=== PATIENT | male | born 1995 | race Caucasian/White ===

== ENCOUNTER 2020-12-21 16:21 | Emergency (ER) | payer OTHER, BC ==
[2020-12-21 16:31] VITALS: BP 170/91; PULSE 84
[2020-12-21] MEDS: Ondansetron 4 MG Tab.DIS PO ONE ×2 (17:07→17:08)
[2020-12-21] MEDS: Bacitracin/Neomycin/Polymyxin B Oint 28.4 GM Tube TOP ONE (17:17)
[2020-12-21] MEDS: Bacitracin/Neomycin/Polymyxin B Oint 0.9 GM U/D Packet TOP ONE (17:19)
--- NOTE | 2020-12-21 17:28 | EDM.PDOC ---
ED HPI GENERAL MEDICAL PROBLEM - General Chief Complaint: Upper Extremity Injury/Pain Stated Complaint: HURT MIDDLE FINGER - LT HAND Time Seen by Provider: 12/21/20 16:40 Source of Information: Reports: Patient History Limitations: Reports: No Limitations - History of Present Illness INITIAL COMMENTS - FREE TEXT/NARRATIVE: Carrington is a 25 year old male who presents with an injury to his left 3rd digit. Relates he got his finger pinched between the rim and tire on a tractor at work. Noted laceration and increased pain to his finger tip. Has good range of motion of his fingers. Up to date on his tetanus. 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) Left Hand Pain Score (Numeric/FACES): 5 - Related Data Allergies Allergy/AdvReac Type Severity Reaction Status Date / Time codeine Allergy Cannot Verified 12/21/20 16:25 Remember Home Meds: Home Meds lisinopriL [Lisinopril] 10 mg PO DAILY 12/21/20 [History] Past Medical History - Past Health History Medical/Surgical History: Denies Medical/Surgical History Cardiovascular History: Reports: Hypertension - Infectious Disease History Infectious Disease History: Reports: None - Past Surgical History HEENT Surgical History: Reports: Other (See Below) Other HEENT Surgeries/Procedures: cleft lip repair Social & Family History - Family History Family Medical History: No Pertinent Family History - Tobacco Use Tobacco Use Status *Q: Former Tobacco User Used Tobacco, but Quit: Yes Month/Year Tobacco Last Used: 0 - Caffeine Use Caffeine Use: Reports: Soda - Recreational Drug Use Recreational Drug Use: No Review of Systems - Review of Systems Review Of Systems: Comprehensive ROS is negative, except as noted in HPI. ED EXAM, GENERAL - Physical Exam Exam: See Below Exam Limited By: No Limitations General Appearance: Alert, WD/WN, No Apparent Distress Extremities: Normal Range of Motion, Normal Capillary Refill Neurological: Alert, Oriented Skin Exam: Wound/Incision ED TRAUMA EXTREMITY PROCEDURES - Laceration/Wound Repair Left Digit - 3rd (Middle) Lac/Wound Length In cm: 2.5 Appearance: Subcutaneous, Linear Distal NVT: Neuro & Vascular Intact Anesthetic Type: Local Local Anesthesia - Lidocaine (Xylocaine): 1% Plain Local Anesthetic Volume: 3cc Exploration/Debridement/Repair: Wound Explored, Explored to Base Closed With: Sutures Suture Size: 4-0 # of Sutures: 3 (3 sutures applied to medial mid finger near nail) Suture Type: Nylon, Interrupted, Simple Sterile Dressing Applied: Provider Tetanus Status Addressed: Yes Complication Description: laceration extends through nail. Bruising under nail. Steri strips applied across nail with medial sutures intact. Pre-eric finger splint placed. Good CMS. Course - Vital Signs Last Recorded V/S: Last Vital Signs Temp 97.8 F 12/21/20 16:27 Pulse 84 12/21/20 16:27 Resp 19 12/21/20 16:27 BP 170/91 H 12/21/20 16:27 Pulse Ox 100 12/21/20 16:27 - Orders/Labs/Meds Orders: Active Orders 24 hr Category Date Time Status Fingers Third Digit Lt F2 [CR] Stat Exams 12/21/20 16:37 Taken Meds: Medications Discontinued Medications Generic Name Dose Route Start Last Admin Trade Name Adriel PRN Reason Stop Dose Admin Lidocaine HCl 5 ml 12/21/20 16:50 12/21/20 17:00 Lidocaine 1% 5 Ml Sdv INJECT 12/21/20 16:51 5 ml ONETIME ONE Administration Neomycin/Polymyxin/Bacitracin 1 gm 12/21/20 17:14 12/21/20 17:17 Bacitracin/Neomycin/Polymyxin B Oint 28.4 Gm Tube TOP 12/21/20 17:15 Not Given ONETIME ONE Neomycin/Polymyxin/Bacitracin 1 each 12/21/20 17:16 12/21/20 17:19 Bacitracin/Neomycin/Polymyxin B Oint 0.9 Gm U/D Packet TOP 12/21/20 17:17 1 each ONETIME ONE Administration Ondansetron HCl 4 mg 12/21/20 17:05 12/21/20 17:08 Ondansetron 4 Mg Tab.Dis PO 12/21/20 17:06 Not Given ONETIME ONE Ondansetron HCl 4 mg 12/21/20 17:07 12/21/20 17:07 Ondansetron 4 Mg Tab.Dis PO 12/21/20 17:08 4 mg ONETIME ONE Administration Departure - Departure Time of Disposition: 17:26 Disposition: Home, Self-Care 01 Condition: Good Clinical Impression: Laceration of finger nail bed Qualifiers: Encounter type: initial encounter Qualified Code(s): S61.319A - Laceration without foreign body of unspecified finger with damage to nail, initial encounter - Discharge Information *PRESCRIPTION DRUG MONITORING PROGRAM REVIEWED*: No *COPY OF PRESCRIPTION DRUG MONITORING REPORT IN PATIENT ATILIO: No Instructions: Laceration Care, Adult Referrals: PCP,None [Primary Care Provider] - Forms: ED Department Discharge Additional Instructions: 1. Keep splint on to protect tip 2. Change bandage to finger daily 3. Keep wound clean and dry 4. Triple antibiotic ointment to wound daily 5. Sutures out in 10 days 6. Wound care instructions to monitor for infection, ie. redness, drainage, increased pain 7. Tylenol or ibuprofen for discomfort 8. Follow up if any concerns. Sepsis Event Note (ED) - Evaluation Sepsis Screening Result: No Definite Risk - Focused Exam Vital Signs: Vital Signs Temp Pulse Resp BP Pulse Ox 12/21/20 16:27 97.8 F 84 19 170/91 H 100 - My Orders Last 24 Hours: My Active Orders 12/21/20 16:37 Fingers Third Digit Lt F2 [CR] Stat - Assessment/Plan Last 24 Hours: My Active Orders 12/21/20 16:37 Fingers Third Digit Lt F2 [CR] Stat
== END 2020-12-21 17:30 | disposition home or self-care (01) ==
LOC: CC.ED 16:21
DX: S61.213A Laceration without foreign body of left middle finger without damage to nail, initial encounter (principal); I10 Essential (primary) hypertension; Z88.5 Allergy status to narcotic agent; Z79.899 Other long term (current) drug therapy; Z87.891 Personal history of nicotine dependence; W26.8XXA Contact with other sharp object(s), not elsewhere classified, initial encounter
CPT/HCPCS: 12001; 73140-F2; 99283-25; A9270-GY